=== PATIENT | female | born 1960 | race Caucasian/White ===

== ENCOUNTER → 2017-10-08 | Outpatient (CLI) | payer BC ==
[2017-10-08 10:04] LABS: Basophils % (A) 1 %; CH 29.9; CHCM 31.8; Eosinophils # (A) 0.1 k/uL (0-0.7); Eosinophils % (A) 2 %; HCT 37.8 % (34.0-46.0); HDW 2.26; HGB 11.9 gm/dL (11.4-16.0); Luc % (Auto) 2; Lymphocytes # (A) 1.9 k/uL (1.0-4.8); Lymphocytes % (A) 40 %; MCH 29.6 pg (25.0-35.0); MCHC 31.4 g/dL (31.0-37.0); MCV 94.4 fL (80.0-100.0); Mean Platelet Volume 7.8; Monocytes # (A) 0.3 k/uL (0-1.0); Monocytes % (A) 7 %; Neutrophils # (A) 2.3 k/uL (1.3-7.7); Neutrophils % (A) 48 %; RDW 13.4 % (11.5-15.5); WBC 4.7 k/uL (3.8-10.6); WBC (Perox) 4.64
== END | disposition home or self-care (01) ==
LOC: LABWHC1 09:32
PROVIDERS: ATTEND Obstetrics & Gynecology
DX: Z01.812 Encounter for preprocedural laboratory examination (principal)
CPT/HCPCS: 36415; 84702; 85025

== ENCOUNTER 2018-07-05 10:30 | Observation (INO) | payer BC ==
--- NOTE | 2018-07-05 11:23 | ED ---
General Adult HPI - General Chief complaint: Chest Pain Stated complaint: Chest pain Time Seen by Provider: 07/05/18 10:50 Source: patient, RN notes reviewed Mode of arrival: ambulatory Limitations: no limitations - History of Present Illness Initial comments: Patient is a pleasant 49-year-old male presenting to the emergency Department with complaints of chest discomfort. Symptoms have been occurring for the past couple of days. Patient has discomfort of her lower chest and does become tight. Patient states it does radiate somewhat towards the right breast as well as the back. Patient does have some dyspnea, nausea, and sweating, all have been mild. Discomfort is essentially resolved at this point. Discomfort has been waxing and waning. No history of similar symptoms prior to the past few days. - Related Data Home Medications Medication Instructions Recorded Confirmed DULoxetine HCL [Cymbalta] 60 mg PO BID 07/05/18 07/05/18 Diltiazem Cd [Cardizem Cd] 120 mg PO DAILY 07/05/18 07/05/18 Levothyroxine Sodium [Synthroid] 50 mcg PO Q48H 07/05/18 07/05/18 Metoprolol Tartrate [Lopressor] 50 mg PO BID 07/05/18 07/05/18 Terazosin [Hytrin] 1 mg PO HS 07/05/18 07/05/18 lamoTRIgine [LaMICtal] 100 mg PO BID 07/05/18 07/05/18 rOPINIRole HCL [Requip] 1 mg PO HS 07/05/18 07/05/18 Allergies Allergy/AdvReac Type Severity Reaction Status Date / Time morphine AdvReac Nausea & Verified 07/05/18 11:21 Vomiting Review of Systems ROS Statement: Those systems with pertinent positive or pertinent negative responses have been documented in the HPI. ROS Other: All systems not noted in ROS Statement are negative. Constitutional: Denies: fever Eyes: Denies: eye pain ENT: Denies: ear pain Respiratory: Denies: cough Cardiovascular: Reports: chest pain Endocrine: Denies: fatigue Gastrointestinal: Reports: nausea. Denies: abdominal pain Genitourinary: Denies: dysuria Musculoskeletal: Denies: back pain Skin: Denies: rash Neurological: Denies: weakness Past Medical History Past Medical History: Hypertension Additional Past Medical History / Comment(s): MS History of Any Multi-Drug Resistant Organisms: None Reported Past Surgical History: Appendectomy, Breast Surgery Past Psychological History: Anxiety Smoking Status: Never smoker Past Alcohol Use History: Occasional Past Drug Use History: None Reported General Exam Limitations: no limitations General appearance: alert, in no apparent distress Head exam: Present: atraumatic Eye exam: Present: normal appearance, PERRL ENT exam: Present: normal oropharynx Neck exam: Present: normal inspection Respiratory exam: Present: normal lung sounds bilaterally. Absent: chest wall tenderness Cardiovascular Exam: Present: bradycardia, normal heart sounds Expanded Peripheral pulses: 2+: Radial (R), Radial (L), Posterior Tibialis (R), Posterior Tibialis (L) GI/Abdominal exam: Present: soft. Absent: tenderness Extremities exam: Present: normal inspection. Absent: pedal edema, calf tenderness Neurological exam: Present: alert Psychiatric exam: Present: normal affect, normal mood Skin exam: Present: normal color Course Vital Signs 07/05/18 07/05/18 10:39 13:00 Temperature 97.9 F Pulse Rate 51 L Respiratory 18 Rate Blood Pressure 125/80 186/80 O2 Sat by Pulse 99 98 Oximetry EKG Findings - EKG Comments: EKG Findings:: Sinus bradycardia 47. W[place] 190. QRS 96. QT 44. QTC 428. Normal axis. LVH. No acute ST change. Medical Decision Making - Medical Decision Making Patient reevaluated and resting comfortably in bed. Patient updated on results and plan. Patient and family are both specifically updated regarding chest x- ray results and possible nodule or mass and need for further evaluation regarding this. They're specifically updated that they will need to follow-up with the regular doctor and have repeat x-rays or computed tomography scan. Case was discussed with Dr. hancock, who will admit for Dr. starr - Lab Data Result diagrams: 07/05/18 11:05 07/05/18 11:05 Lab Results 07/05/18 07/05/18 07/05/18 Range/Units 11:05 11:05 11:05 WBC 5.8 (3.8-10.6) k/uL RBC 4.29 (3.80-5.40) m/uL Hgb 13.0 (11.4-16.0) gm/dL Hct 39.8 (34.0-46.0) % MCV 92.7 (80.0-100.0) fL MCH 30.4 (25.0-35.0) pg MCHC 32.8 (31.0-37.0) g/dL RDW 12.3 (11.5-15.5) % Plt Count 252 (150-450) k/uL Neutrophils % 62 % Lymphocytes % 25 % Monocytes % 9 % Eosinophils % 2 % Basophils % 1 % Neutrophils # 3.6 (1.3-7.7) k/uL Lymphocytes # 1.5 (1.0-4.8) k/uL Monocytes # 0.5 (0-1.0) k/uL Eosinophils # 0.1 (0-0.7) k/uL Basophils # 0.0 (0-0.2) k/uL PT (9.0-12.0) sec INR (<1.2) APTT (22.0-30.0) sec D-Dimer (<0.60) mg/L FEU Sodium 139 (137-145) mmol/L Potassium 3.9 (3.5-5.1) mmol/L Chloride 105 (98-107) mmol/L Carbon Dioxide 26 (22-30) mmol/L Anion Gap 8 mmol/L BUN 17 (7-17) mg/dL Creatinine 1.12 H (0.52-1.04) mg/dL Est GFR (CKD-EPI)AfAm 63 (>60 ml/min/1.73 sqM) Est GFR (CKD-EPI)NonAf 55 (>60 ml/min/1.73 sqM) Glucose 96 (74-99) mg/dL Calcium 9.2 (8.4-10.2) mg/dL Magnesium 2.1 (1.6-2.3) mg/dL Total Bilirubin 0.4 (0.2-1.3) mg/dL AST 30 (14-36) U/L ALT 31 (9-52) U/L Alkaline Phosphatase 59 (38-126) U/L Total Creatine Kinase 61 (30-135) U/L CK-MB (CK-2) 0.7 (0.0-2.4) ng/mL CK-MB (CK-2) Rel Index 1.1 Troponin I <0.012 (0.000-0.034) ng/mL Total Protein 7.3 (6.3-8.2) g/dL Albumin 4.0 (3.5-5.0) g/dL 07/05/18 Range/Units 11:05 WBC (3.8-10.6) k/uL RBC (3.80-5.40) m/uL Hgb (11.4-16.0) gm/dL Hct (34.0-46.0) % MCV (80.0-100.0) fL MCH (25.0-35.0) pg MCHC (31.0-37.0) g/dL RDW (11.5-15.5) % Plt Count (150-450) k/uL Neutrophils % % Lymphocytes % % Monocytes % % Eosinophils % % Basophils % % Neutrophils # (1.3-7.7) k/uL Lymphocytes # (1.0-4.8) k/uL Monocytes # (0-1.0) k/uL Eosinophils # (0-0.7) k/uL Basophils # (0-0.2) k/uL PT 9.9 (9.0-12.0) sec INR 1.0 (<1.2) APTT 24.0 (22.0-30.0) sec D-Dimer 0.32 (<0.60) mg/L FEU Sodium (137-145) mmol/L Potassium (3.5-5.1) mmol/L Chloride (98-107) mmol/L Carbon Dioxide (22-30) mmol/L Anion Gap mmol/L BUN (7-17) mg/dL Creatinine (0.52-1.04) mg/dL Est GFR (CKD-EPI)AfAm (>60 ml/min/1.73 sqM) Est GFR (CKD-EPI)NonAf (>60 ml/min/1.73 sqM) Glucose (74-99) mg/dL Calcium (8.4-10.2) mg/dL Magnesium (1.6-2.3) mg/dL Total Bilirubin (0.2-1.3) mg/dL AST (14-36) U/L ALT (9-52) U/L Alkaline Phosphatase (38-126) U/L Total Creatine Kinase (30-135) U/L CK-MB (CK-2) (0.0-2.4) ng/mL CK-MB (CK-2) Rel Index Troponin I (0.000-0.034) ng/mL Total Protein (6.3-8.2) g/dL Albumin (3.5-5.0) g/dL - Radiology Data Radiology results: image reviewed (Chest x-ray shows hyperinflation, possible left upper lobe mass.) Disposition Clinical Impression: Chest pain Disposition: ADMITTED IP TO THIS HOSP Is patient prescribed a controlled substance at d/c from ED?: No Referrals: Kapil Starr MD [Primary Care Provider] - 1-2 days Decision Time: 13:38
[2018-07-05] MEDS ORDERED: ASPIRIN 81 MG PO STA (11:48)
[2018-07-05] MEDS ORDERED: NITROGLYCERIN OINT 1 INCH/GM PACKET TOPICAL STA (11:48)
[2018-07-05 12:04] LABS: Basophils % (A) 1 %; Eosinophils # (A) 0.1 k/uL (0-0.7); Eosinophils % (A) 2 %; HCT 39.8 % (34.0-46.0); Lymphocytes # (A) 1.5 k/uL (1.0-4.8); Lymphocytes % (A) 25 %; MCH 30.4 pg (25.0-35.0); MCHC 32.8 g/dL (31.0-37.0); MCV 92.7 fL (80.0-100.0); Mean Platelet Volume 7.5; Monocytes # (A) 0.5 k/uL (0-1.0); Monocytes % (A) 9 %; Neutrophils # (A) 3.6 k/uL (1.3-7.7); Neutrophils % (A) 62 %; Platelet Count 252 k/uL (150-450); RBC 4.29 m/uL (3.80-5.40); RDW 12.3 % (11.5-15.5); WBC 5.8 k/uL (3.8-10.6)
[2018-07-05 12:12] LABS: Calcium 9.2 mg/dL (8.4-10.2); Magnesium 2.1 mg/dL (1.6-2.3); Potassium 3.9 mmol/L (3.5-5.1); Total Bilirubin 0.4 mg/dL (0.2-1.3); Total Protein 7.3 g/dL (6.3-8.2)
--- NOTE | 2018-07-05 12:16 | XR ---
EXAMINATION TYPE: XR chest 2V DATE OF EXAM: 07/05/2018 HISTORY: Chest Pain. REFERENCE: NONE. FINDINGS: Lung volumes are prominent. There is a questionable left upper lobe pulmonary mass. The susanna gs are otherwise clear. There is blunting of the left CP angle. I could not exclude a small left effu jaleel. The heart is not enlarged. IMPRESSION: 1. COPD. 2. LEFT UPPER LOBE PULMONARY MASS. 3. I COULD NOT EXCLUDE A SMALL, LEFT EFFUSION.
[2018-07-05 12:17] LABS: D-Dimer 0.32 mg/L FEU (<0.60); Prothrombin Time 9.9 sec (9.0-12.0)
[2018-07-05 12:30] LABS: Creatine Kinase 61 U/L (30-135)
[2018-07-05 12:44] LABS: Creatine Kinase MB 0.7 ng/mL (0.0-2.4); Troponin I <0.012 ng/mL (0.000-0.034)
[2018-07-05] MEDS ORDERED: NITROGLYCERIN SL TABS 0.4 MG TAB SUBLINGUAL PRN (13:38)
[2018-07-05 16:47] VITALS: BMI 20.2
[2018-07-05 17:08] LABS: Creatine Kinase 54 U/L (30-135)
[2018-07-05 17:21] LABS: Creatine Kinase MB 0.6 ng/mL (0.0-2.4); Troponin I <0.012 ng/mL (0.000-0.034)
[2018-07-05] MEDS: NITROGLYCERIN OINT 1 INCH/GM PACKET TOPICAL SCH ×2 (20:11→23:42)
[2018-07-05] MEDS: DULoxetine HCL 60 MG CAPSULE.DR PO SCH (20:46)
[2018-07-05] MEDS: lamoTRIgine 100 MG TAB PO SCH (20:47)
[2018-07-05] MEDS ORDERED: DOXAZOSIN 1 MG TAB PO SCH (21:00)
[2018-07-05] MEDS ORDERED: RX INFO: IV CONTRAST WAS GIVEN 1 EACH MISC MISCELLANE PRN (22:01)
[2018-07-05] MEDS ORDERED: CALCIUM CARBONATE 500 MG CHEWABLE PO PRN (22:14)
[2018-07-05] MEDS ORDERED: MAGNESIUM HYDROXIDE 2,400 MG/10 ML CUP PO PRN (22:14)
[2018-07-05] MEDS ORDERED: MELATONIN 3 MG TABLET PO PRN (22:14)
[2018-07-05] MEDS ORDERED: NALOXONE 0.4 MG/ML 1 ML VIAL IV PRN (22:14)
[2018-07-05] MEDS ORDERED: ONDANSETRON 4 MG/2 ML VIAL IVP PRN (22:14)
[2018-07-05] MEDS ORDERED: LACTULOSE 20 GM/30 ML CUP PO PRN (22:14)
--- NOTE | 2018-07-05 22:51 | HP ---
HISTORY AND PHYSICAL DATE OF SERVICE: 07/05/2018 PRESENTING COMPLAINT: Chest pain. HISTORY OF PRESENTING COMPLAINT: A very pleasant 58-year-old patient of Dr. Starr. Chronic stable medical conditions include hypertension, multiple sclerosis, GERD. The patient's MS is under control, not taking any medications. The patient is due to follow up with Dr. Sinha. The patient does get episodes of reflux and belching and abdominal bloating and constipation. Two days ago, she had gone to eat [place] food with her and that day in the evening she developed pain below the ribcage and she did burp and did fart and that actually made her feel better. The pain never really went away. It was present on both sides, what she describes to be below her breasts, both in the upper abdomen and the lower chest. There was no radiation to the neck or arm. No dizziness. No lightheadedness. No precordial pain. Because of concern of this being a cardiac event, she decided to come in. Like stated, the patient is often troubled by bloating and constipation and reflux symptoms. REVIEW OF SYSTEMS: CONSTITUTIONAL: None. HEENT: None. CARDIOVASCULAR: As above. GASTROINTESTINAL: As above. GENITOURINARY: None. MUSCULOSKELETAL: None. DERMATOLOGICAL: None. HEMATOLOGIC: None. LYMPHATICS: None. PSYCHIATRY: None. NEUROLOGICAL: None. PAST MEDICAL HISTORY: GERD, hypertension, multiple sclerosis. PAST SURGICAL HISTORY: Appendectomy, breast surgery. PSYCH HISTORY: Anxiety. SOCIAL HISTORY: Patient smoked for maybe 10 years a few cigarettes a day, stopped many years ago. Alcohol occasionally. Homemaker. . FAMILY HISTORY: The patient is adopted. HOME MEDICATIONS: 1. Requip 1 mg q.h.s. 2. Lamictal 100 mg b.i.d. 3. Terazosin 1 mg q.h.s. 4. Lopressor 50 mg b.i.d. 5. Synthroid 50 mcg every 48 hours. 6. Cardizem CD 120 mg a day. 7. Cymbalta 60 mg p.o. b.i.d. ALLERGY: MORPHINE. EXAMINATION: Temp 97.4, pulse 54, respirations 15, blood pressure 150/88, pulse 100% on room air. GENERAL APPEARANCE: Thin built, BMI 20.2, sitting up, not in distress. EYES: Pupils equal. Conjunctivae normal. HEENT: External nose and ears normal. Oral cavity normal. NECK: JVD not raised. Mass not palpable. RESPIRATORY: Effort normal. LUNGS: Fair air entry. CARDIOVASCULAR: First and second sounds normal. No edema. ABDOMEN: Epigastric tenderness. No guarding or rigidity. Liver and spleen not palpable. LYMPHATIC: No lymph node palpable. PSYCHIATRY: Alert and oriented x3. Mood and affect slightly anxious-appearing. NEUROLOGICAL: Pupils equal. Cranial nerves grossly intact. Power and sensation grossly intact. INVESTIGATIONS: White count 5.8, hemoglobin 13.0. Potassium 3.9, BUN 17, creatinine 1.12. Troponin x2 negative. EKG tracing interpreted by me shows sinus bradycardia. Chest x-ray film interpreted by me shows lung richardson to be clear. There is a questionable left upper lobe pulmonary mass. ASSESSMENT: 1. This is a patient who has had a longstanding history of reflux, bloating, constipation, presented with worsening symptoms with some help with burping and flatus. Most likely this is a combination of gastroesophageal reflux disease, esophageal spasm and maybe gastritis. I doubt cardiac cause, but need to rule out the same. 2. Questionable left upper lung mass on chest x-ray. Will need a CT scan. 3. Severe reflux. 4. Essential hypertension. 5. Multiple sclerosis in remission. 6. Hypothyroid. PLAN: Home medications are resumed. At this point, we will put the patient on a PPI, Tums and simethicone for gastric bloating. Cardiology was consulted. Will order a CT scan of the chest with contrast. Will also check the patient's TSH. Care was discussed with the patient. Questions were answered. MMODL / IJN: [id number] /
[2018-07-05] MEDS: PANTOPRAZOLE 40 MG TABLET PO SCH (23:32)
[2018-07-05] MEDS: CALCIUM CARBONATE LIQUID 500 MG/5 ML CUP PO SCH (23:32)
[2018-07-05 23:34] LABS: Creatine Kinase 52 U/L (30-135)
[2018-07-05] MEDS: ENOXAPARIN 40 MG/0.4 ML SYRINGE SQ SCH (23:38)
[2018-07-05] MEDS: SIMETHICONE 80 MG CHEWABLE PO SCH (23:38)
[2018-07-05] MEDS: METOPROLOL TARTRATE 50 MG TAB PO SCH (23:38)
[2018-07-05 23:49] LABS: Creatine Kinase MB 0.6 ng/mL (0.0-2.4); Troponin I <0.012 ng/mL (0.000-0.034)
[2018-07-06] MEDS: PANTOPRAZOLE 40 MG TABLET PO SCH ×2 (06:32→17:42)
[2018-07-06] MEDS: CALCIUM CARBONATE LIQUID 500 MG/5 ML CUP PO SCH ×3 (06:32→17:36)
[2018-07-06] MEDS: NITROGLYCERIN OINT 1 INCH/GM PACKET TOPICAL SCH (06:34)
--- NOTE | 2018-07-06 07:56 | CT ---
EXAMINATION TYPE: CT chest w con DATE OF EXAM: 07/06/2018 COMPARISON: Chest x-ray dated 07/05/2018. HISTORY: abn CXR CT DLP: 368 mGycm Automated exposure control for dose reduction was used. CONTRAST: CT scan of the chest is performed with IV Contrast, patient injected with 100 mL of Isovue 300. FINDINGS: The lungs are clear. No parenchymal mass is identified. There are bilateral breast implants in place. There is no significant axillary, internal mammary, mediastinal or hilar adenopathy. There is no pleu ral or pericardial fluid. The heart is not enlarged. Visualized portions of the upper abdomen are unremarkable. No bony lesion is seen. IMPRESSION: 1. NO ACUTE INTRATHORACIC ABNORMALITY. 2. POSTSURGICAL CHANGE.
[2018-07-06] MEDS ORDERED: DILTIAZEM CD 120 MG CAP.ER.24H PO SCH (09:00)
[2018-07-06] MEDS ORDERED: ASPIRIN 325 MG TAB PO SCH (09:00)
--- NOTE | 2018-07-06 13:49 | P.CRDCN ---
History of Present Illness History of present illness: This is Dr. Medley dictating a consult on this patient The patient was interviewed and examined by me IMPRESSION / ASSESSMENT: Fluctuating blood pressures, history of hypertension Apparently was on lisinopril and was told that she had a kidney problem. Upper abdominal bandlike discomfort/lower chest but appears to be upper abdominal. One episode of diarrhea. Usually she is very constipated Dyslipidemia Daily wine consumption no smoking History of multiple sclerosis Recently moved here from [place] Normal ECG normal cardiac enzymes Complains of severe constipation, has been on Cardizem No abnormalities on chest CT PLAN: Stop metoprolol, stop Cardizem, stop terazosin start losartan 50 mg by mouth daily. Watch renal function did GI workup for severe constipation and abdominal pain Unclear why her creatinine is 1.12 Renal system evaluation GI evaluation Stop Cardizem, may worsen obstipation HPI Patient presented with a bandlike discomfort in the lower chest upper abdomen area. Patient points to the upper abdomen lower chest area did normally she is extremely constipated and wants to see a welcome desk agent but she had an episode of diarrhea as well as nausea. No loss of consciousness no palpitations. She did feel that this discomfort went up into her chest into her neck ROS: No fever chills or rigors, no cough, phlegm or expectoration, + nausea, no vomiting 1 episode of diarrhea, no hematuria, dysuria, no musculoskeletal complaints, no strokes or seizures, no skin lesions. EXAMINATION 145/73, 117/58 Pulse rate in the 60s Afebrile Resting comfortably in bed no respiratory distress no orthopnea Normal heart sounds normal S1 normal S2 Normal breath sounds no adventitious sounds Abdomen is soft nontender Extremities are warm no edema REVIEW OF LABS, ECG Normal hemoglobin and normal white count creatinine 1.12 GFR 55 LDL 139, total cholesterol 234, triglycerides 158, HDL 63 Normal TSH 3 normal cardiac enzymes Sinus bradycardia 47 beats a minute on metoprolol and Cardizem Past Medical History Past Medical History: Hypertension Additional Past Medical History / Comment(s): MS History of Any Multi-Drug Resistant Organisms: None Reported Past Surgical History: Appendectomy, Breast Surgery Smoking Status: Former smoker - Past Family History Father Family Medical History: Coronary Artery Disease (CAD) Medications and Allergies Home Medications Medication Instructions Recorded Confirmed Type DULoxetine HCL [Cymbalta] 60 mg PO BID 07/05/18 07/05/18 History Diltiazem Cd [Cardizem Cd] 120 mg PO DAILY 07/05/18 07/05/18 History Levothyroxine Sodium [Synthroid] 50 mcg PO Q48H 07/05/18 07/05/18 History Metoprolol Tartrate [Lopressor] 50 mg PO BID 07/05/18 07/05/18 History Terazosin [Hytrin] 1 mg PO HS 07/05/18 07/05/18 History lamoTRIgine [LaMICtal] 100 mg PO BID 07/05/18 07/05/18 History rOPINIRole HCL [Requip] 1 mg PO HS 07/05/18 07/05/18 History Allergies Allergy/AdvReac Type Severity Reaction Status Date / Time morphine AdvReac Nausea & Verified 07/05/18 11:21 Vomiting Physical Exam Vitals: Vital Signs Temp Pulse Pulse Pulse Resp BP BP 07/06/18 04:00 97.1 F L 61 16 117/58 07/06/18 00:00 63 16 145/73 07/05/18 20:00 97.0 F L 58 L 16 144/84 07/05/18 16:24 54 L 16 151/84 07/05/18 16:19 07/05/18 16:00 97.4 F L 54 L 15 150/88 07/05/18 15:00 56 L 20 160/84 07/05/18 14:00 55 L 18 168/75 Pulse Ox 07/06/18 04:00 99 07/06/18 00:00 98 07/05/18 20:00 97 07/05/18 16:24 99 07/05/18 16:19 99 07/05/18 16:00 100 07/05/18 15:00 98 07/05/18 14:00 99 Intake and Output 07/05/18 07/06/18 07/06/18 22:59 06:59 14:59 Intake Total 1190 Balance 1190 Intake: IV 10 Invasive Line 1 10 Oral 1180 Other: Voiding Method Toilet Toilet # Voids 2 1 Weight 53.5 kg 54.3 kg Results 07/05/18 11:05 07/05/18 11:05 Cardiac Enzymes 07/05/18 07/05/18 Range/Units 16:37 23:03 CK-MB (CK-2) 0.6 0.6 (0.0-2.4) ng/mL Troponin I <0.012 <0.012 (0.000-0.034) ng/mL Lipids 07/05/18 Range/Units 11:05 Triglycerides 158 H (<150) mg/dL Cholesterol 234 H (<200) mg/dL HDL Cholesterol 63 H (40-60) mg/dL Current Medications Generic Name Dose Route Start Last Admin Trade Name Freq PRN Reason Stop Dose Admin Acetaminophen 650 mg 07/05/18 22:14 Tylenol Tab PO Q6HR PRN Mild Pain or Fever > 100.5 Aspirin 81 mg 07/06/18 11:45 Aspirin PO DAILY [facility]U Calcium Carbonate/Glycine 500 mg 07/05/18 21:50 07/06/18 06:32 Tums Liquid PO 500 mg TID-W/MEALS BINU Administration Calcium Carbonate/Glycine 1,000 mg 07/05/18 22:14 Tums PO Q4HR PRN Dyspepsia Duloxetine HCl 60 mg 07/05/18 21:00 07/05/18 20:46 Cymbalta PO 60 mg BID [facility] Administration Enoxaparin Sodium 40 mg 07/05/18 22:00 07/05/18 23:38 Lovenox SQ 40 mg HS BINU Administration Lactulose 20 gm 07/05/18 22:14 Cephulac PO DAILY PRN Constipation Lamotrigine 100 mg 07/05/18 21:00 07/05/18 20:47 Lamictal PO 100 mg BID [facility]U Administration Levothyroxine Sodium 50 mcg 07/07/18 06:30 Synthroid PO Q48H BINU Lorazepam 0.5 mg 07/05/18 22:14 Ativan PO Q6HR PRN Anxiety Losartan Potassium 50 mg 07/06/18 11:45 Cozaar PO DAILY [facility] Magnesium Hydroxide 2,400 mg 07/05/18 22:14 Milk Of Magnesia PO DAILY PRN Constipation Melatonin 3 mg 07/05/18 22:14 Melatonin PO HS PRN Insomnia Miscellaneous Information 1 each 07/05/18 22:01 Rx Info: Iv Contrast Was Given MISCELLANE 07/07/18 22:01 DAILY PRN Per Protocol Naloxone HCl 0.2 mg 07/05/18 22:14 Narcan IV Q2M PRN Opioid Reversal Nitroglycerin 0.4 mg 07/05/18 13:38 Nitrostat SUBLINGUAL Q5M PRN Chest Pain Ondansetron HCl 4 mg 07/05/18 22:14 Zofran IVP Q8HR PRN Nausea And Vomiting Pantoprazole Sodium 40 mg 07/05/18 22:00 07/06/18 06:32 Protonix PO 40 mg AC-BID BINU Administration Ropinirole HCl 1 mg 07/05/18 21:00 07/05/18 20:47 Requip PO 1 mg HS BINU Administration Simethicone 80 mg 07/05/18 22:00 07/05/18 23:38 Mylicon Chew PO 80 mg QID BINU Administration Sodium Chloride 10 ml 07/05/18 21:00 07/05/18 20:47 Saline Flush IV 10 ml BID BINU Administration Intake and Output 07/05/18 07/06/18 07/06/18 22:59 06:59 14:59 Intake Total 1190 Balance 1190 Intake: IV 10 Invasive Line 1 10 Oral 1180 Other: Voiding Method Toilet Toilet # Voids 2 1 Weight 53.5 kg 54.3 kg 07/05/18 11:05 07/05/18 11:05
[2018-07-06] MEDS: LOSARTAN 50 MG TAB PO SCH (13:59)
[2018-07-06] MEDS: ASPIRIN 81 MG PO SCH (13:59)
[2018-07-06] MEDS: SIMETHICONE 80 MG CHEWABLE PO SCH ×4 (14:00→23:10)
[2018-07-06] MEDS: DULoxetine HCL 60 MG CAPSULE.DR PO SCH ×2 (14:00→20:01)
[2018-07-06] MEDS: lamoTRIgine 100 MG TAB PO SCH ×2 (14:01→20:01)
--- NOTE | 2018-07-06 18:35 | PN ---
PROGRESS NOTE DATE OF SERVICE: 07/06/18. PRESENTING COMPLAINT: Abdominal pain. INTERVAL HISTORY: This is a patient who presented with a flare-up of GERD, bloating, esophageal spasms, was put on a cocktail of PPIs and TUMs, some Simethicone to which she is feeling better. The patient is seen by Dr. Medley from Cardiology. Blood pressure medications were adjusted. REVIEW OF SYSTEMS: Done for constitutional, cardiovascular, GI, pulmonary; relevant findings as above. CURRENT MEDICATIONS: Reviewed that includes Cozaar, patient's Hytrin, Lopressor, Cardizem has been discontinued. The latter because of constipation. PHYSICAL EXAMINATION: Temperature 97.1, pulse 57, respiratory 19, blood pressure 125/66, pulse ox 100% on room air. GENERAL APPEARANCE: Sitting up, comfortable. EYES: Pupils equal. Conjunctivae normal. HEENT: External appearance of nose and ears normal. Oral cavity normal. NECK: JVD not raised. Mass not palpable. RESPIRATORY: Effort normal. Lungs are clear. CARDIOVASCULAR: 1st and 2nd sounds, no edema. ABDOMEN: Mild epigastric tenderness. No guarding or rigidity. Liver and spleen not palpable. PSYCHIATRY: Alert and oriented x3. Mood and affect normal. INVESTIGATIONS: Troponin x3 negative. LDL 139. TSH 1.7. CT scan of the chest. No acute intrathoracic abnormalities. ASSESSMENT: 1. Acute severe gastroesophageal reflux disease, possibly causing esophageal spasm, doing clinically better, probably associated gastritis. 2. CT scan of the chest negative for lung mass. 3. Severe gastroesophageal reflux disease. 4. Essential hypertension. Medications adjusted. 5. Multiple sclerosis in remission. 6. Hypothyroid with TSH normal. 7. Chronic constipation. PLAN: We will see how the patient's blood pressure does overnight. We will add Metamucil. Care was discussed with the patient. Hopefully can discharge the patient tomorrow. MMODL / IJN: [id number] /
[2018-07-06] MEDS: PSYLLIUM HUSK 100% 6 GM PACKET PO SCH (20:01)
[2018-07-06] MEDS: ENOXAPARIN 40 MG/0.4 ML SYRINGE SQ SCH (20:01)
[2018-07-06] MEDS: METOPROLOL TARTRATE 50 MG TAB PO SCH (20:09)
[2018-07-07] MEDS: PANTOPRAZOLE 40 MG TABLET PO SCH ×2 (06:26→17:49)
[2018-07-07] MEDS: CALCIUM CARBONATE LIQUID 500 MG/5 ML CUP PO SCH ×3 (06:27→17:48)
[2018-07-07] MEDS: LEVOTHYROXINE 50 MCG TAB PO SCH (06:44)
[2018-07-07 06:49] LABS: Calcium 9.5 mg/dL (8.4-10.2); Potassium 4.3 mmol/L (3.5-5.1)
[2018-07-07] MEDS: DULoxetine HCL 60 MG CAPSULE.DR PO SCH ×2 (09:14→20:21)
[2018-07-07] MEDS: ASPIRIN 81 MG PO SCH (09:14)
[2018-07-07] MEDS: SIMETHICONE 80 MG CHEWABLE PO SCH ×4 (09:15→20:21)
[2018-07-07] MEDS: lamoTRIgine 100 MG TAB PO SCH ×2 (09:15→20:20)
[2018-07-07] MEDS: LOSARTAN 50 MG TAB PO SCH (09:15)
[2018-07-07] MEDS: PSYLLIUM HUSK 100% 6 GM PACKET PO SCH (09:18)
[2018-07-07] MEDS: amLODIPine 5 MG TAB PO SCH (15:05)
[2018-07-07] MEDS: ACETAMINOPHEN TAB 325 MG TAB PO PRN ×2 (15:09→20:19)
--- NOTE | 2018-07-07 15:18 | P.PN ---
Subjective Progress Note Date: 07/07/18 This is a 58-year-old female who presented to the hospital with symptoms of chest discomfort, mostly epigastric in nature. She also had some lower abdominal discomfort as well. Cardiology was seeing the patient because of this atypical chest pain as well as because of accelerated hypertension. She was seen in consultation by Dr. Medley and medication adjustments were made yesterday. She was started on an angiotensin nafisa, today he continues to be significantly hypertensive. Blood pressure this morning 190/90 with a heart rate in the 70s, temperature 97.5. Sodium 142, potassium 4.3, BUN 13, creatinine 1.0. Cholesterol 234, LDL 139, HDL 63, triglycerides of 158. We'll start the patient on 80 mg of Lipitor, discontinue the losartan and at Norvasc 5 mg daily to her medication regime. We will also obtain an echocardiogram with Doppler study. Patient's main complaint today is that she still feels quite constipated. Objective - Vital Signs Vital signs: Vital Signs Temp 97.5 F L 07/07/18 09:00 Pulse 70 07/07/18 14:09 Resp 16 07/07/18 11:10 BP 193/95 07/07/18 14:09 Pulse Ox 99 07/07/18 11:10 Intake & Output 07/06/18 07/07/18 07/07/18 18:59 06:59 18:59 Intake Total 500 720 342 Output Total 1000 Balance 500 720 -658 Weight 53.8 kg Intake: Oral 500 720 342 Output: Urine 1000 Other: Voiding Method Toilet Toilet Toilet # Voids 1 2 - Exam PHYSICAL EXAMINATION: GENERAL: 58-year-old female in no acute distress at the time of my examination HEENT: Head is atraumatic, normocephalic. Pupils equal, round. Sclera anicteric. Conjunctiva are clear. Mucous membranes of the mouth are moist. Neck is supple. There is no elevated jugular venous pressure.] bruit is heard. HEART EXAMINATION: Heart S1, S2 normal. No murmur or gallop heard. CHEST EXAMINATION: Lungs are clear to auscultation and precussion. No chest wall tenderness is noted on palpation or with deep breathing. ABDOMEN: Soft, nontender. Bowel sounds are heard. No organomegaly noted. EXTREMITIES: 2+ peripheral pulses with no evidence of peripheral edema and no calf tenderness noted. NEUROLOGIC patient is awake, alert and oriented ?-3. . - Labs CBC & Chem 7: 07/05/18 11:05 07/07/18 06:04 Labs: Abnormal Lab Results - Last 24 Hours (Table) 07/07/18 Range/Units 06:04 Creatinine 1.09 H (0.52-1.04) mg/dL Assessment and Plan Plan: Assessment and plan #1 chest pain atypical for acute coronary syndrome, epigastric in nature. Troponins negative. EKG shows normal sinus rhythm with no changes. #2 accelerated hypertension with fluctuation in her blood pressures. Those are and add Norvasc today. #3 abdominal discomfort with evidence of constipation #4 hyperlipidemia #5 daily wine consumption #6 multiple sclerosis Plan We will obtain an echocardiogram with Doppler study. Add Norvasc 5 mg to her medication regime. Start the patient on Lipitor. DNP note has been reviewed, I agree with a documented findings and plan of care. Patient was seen and examined.
[2018-07-07] MEDS ORDERED: amLODIPine 5 MG TAB PO STA (17:18)
[2018-07-07] MEDS: LORazepam 0.5 MG TAB PO PRN (20:20)
[2018-07-07] MEDS: ENOXAPARIN 40 MG/0.4 ML SYRINGE SQ SCH (20:20)
[2018-07-07] MEDS ORDERED: ATORVASTATIN 80 MG TAB PO SCH (21:00)
--- NOTE | 2018-07-07 23:15 | PN ---
PROGRESS NOTE DATE OF SERVICE: 07/07/2018 PRESENTING COMPLAINT: Abdominal pain. INTERVAL HISTORY: This patient presented with flare of GERD and esophageal spasm and those symptoms are greatly improved. The blood pressure medications were adjusted by Cardiology, Dr. Medley. This morning, the blood pressure was running high. Further adjustments were made to the blood pressure medications. Medication also added for constipation. REVIEW OF SYSTEMS: Done for constitutional, cardiovascular, GI, pulmonary and findings as above. CURRENT MEDICATIONS: Reviewed and include: 1. Norvasc 5 mg a day. 2. Lipitor 80 mg at bedtime. 3. Synthroid. 4. Cozaar 50 mg a day. PHYSICAL EXAMINATION: Temperature 98, pulse 72, respiratory rate 16, blood pressure 184/102, pulse ox 99% on room air. GENERAL APPEARANCE: Sitting up, comfortable. EYES: Pupils are equal. Conjunctivae normal. HEENT: External nose is normal. Oral cavity normal. NECK: JVD not raised. Mass not palpable. RESPIRATORY: Effort normal. LUNGS: Clear. CARDIOVASCULAR: First and second sounds normal. No edema. ABDOMEN: Minimal epigastric tenderness. Soft, nontender. Liver and spleen not palpable. PSYCHIATRY: Alert and oriented x3. Mood and affect normal. INVESTIGATIONS: Potassium 4.3, creatinine 1.09. ASSESSMENT: 1. Acute severe gastroesophageal reflux disease, possible causing cervical spasms, now clinically improved. Possibly associated gastritis. 2. Severe gastroesophageal reflux disease. 3. Essential hypertension, uncontrolled. 4. Multiple sclerosis in remission. 5. Hypothyroid. 6. Chronic long-standing constipation. PLAN: We will increase the patient's Metamucil to twice a day and also add lactulose. Blood pressure medication is being adjusted by Cardiology. Care was discussed the patient. MMODL / IJN: [id number] /
[2018-07-08] MEDS: LEVOTHYROXINE 50 MCG TAB PO SCH (06:24)
[2018-07-08] MEDS: CALCIUM CARBONATE LIQUID 500 MG/5 ML CUP PO SCH ×2 (06:24→12:38)
[2018-07-08] MEDS: LACTULOSE 20 GM/30 ML CUP PO SCH ×2 (06:24→08:09)
[2018-07-08] MEDS: PANTOPRAZOLE 40 MG TABLET PO SCH (06:25)
[2018-07-08] MEDS: PSYLLIUM HUSK 100% 6 GM PACKET PO SCH ×2 (06:30→08:09)
[2018-07-08 06:52] LABS: Calcium 9.6 mg/dL (8.4-10.2); Potassium 4.6 mmol/L (3.5-5.1)
[2018-07-08] MEDS: SIMETHICONE 80 MG CHEWABLE PO SCH ×2 (08:06→12:38)
[2018-07-08] MEDS: amLODIPine 5 MG TAB PO SCH (08:06)
[2018-07-08] MEDS: DULoxetine HCL 60 MG CAPSULE.DR PO SCH (08:06)
[2018-07-08] MEDS: ASPIRIN 81 MG PO SCH (08:06)
[2018-07-08] MEDS: LOSARTAN 50 MG TAB PO SCH (08:06)
[2018-07-08] MEDS: lamoTRIgine 100 MG TAB PO SCH (08:07)
[2018-07-08 08:25] VITALS: RESP 16
--- NOTE | 2018-07-08 10:31 | ECHOF ---
Referral Reason:htn MEASUREMENTS -------- HEIGHT: 162.6 cm WEIGHT: 53.5 kg BP: 160/92 IVSd: 1.2 cm (0.6 - 1.1) LVIDd: 4.1 cm (3.9 - 5.3) LVPWd: 1.1 cm (0.6 - 1.1) IVSs: 1.3 cm LVIDs: 2.2 cm LVPWs: 1.3 cm LA Diam: 2.7 cm (2.7 - 3.8) LAESV Index (A-L): 25.89 ml/m Ao Diam: 2.5 cm (2.0 - 3.7) AV Cusp: 1.7 cm (1.5 - 2.6) LA Diam: 2.6 cm (2.7 - 3.8) EPSS: 0.7 cm MV E Thai: 0.74 m/s MV DecT: 236 ms MV A Thai: 1.02 m/s MV E/A Ratio: 0.73 RAP: 5.00 mmHg RVSP: 10.97 mmHg MV EF SLOPE: 86.97 mm/s (70 - 150) MV EXCURSION: 1.24 cm (> 18.000) FINDINGS -------- Sinus rhythm. This was a technically adequate study. Pt. Has Breast inplants The left ventricular size is normal. There is mild concentric left ventricular hypertrophy. Overa ll left ventricular systolic function is normal with, an EF between 55 - 60 %. The right ventricle is normal in size and function. Normal LA size by volume 22+/-6 ml/m2. The right atrium is normal in size. Aortic valve is trileaflet and is mildly thickened. The mitral valve leaflets are mildly thickened. Mild mitral regurgitation is present. Trace tricuspid regurgitation present. Right ventricular systolic pressure is normal at < 35 mmHg. The right ventricular systolic pressure, as measured by Doppler, is 10.97mmHg. The pulmonic valve was not well visualized. There is no pulmonic regurgitation present. The aortic root size is normal. Normal inferior vena cava with normal inspiratory collapse consistent with estimated right atrial pre ssure of 5 mmHg. There is no pericardial effusion. CONCLUSIONS -------- 1. Sinus rhythm. 2. This was a technically adequate study. 3. Pt. Has Breast inplants 4. The left ventricular size is normal. 5. There is mild concentric left ventricular hypertrophy. 6. Overall left ventricular systolic function is normal with, an EF between 55 - 60 %. 7. Normal LA size by volume 22+/-6 ml/m2. 8. Aortic valve is trileaflet and is mildly thickened. 9. The mitral valve leaflets are mildly thickened. 10. Mild mitral regurgitation is present. 11. Trace tricuspid regurgitation present. 12. Right ventricular systolic pressure is normal at < 35 mmHg. 13. The pulmonic valve was not well visualized. 14. There is no pulmonic regurgitation present. 15. The aortic root size is normal. 16. There is no pericardial effusion. BUSINESS [employer] SALES ASSISTANT: Tay Enriquez RDCS
[2018-07-08] MEDS: LORazepam 0.5 MG TAB PO PRN (12:41)
--- NOTE | 2018-07-08 14:05 | P.PN ---
Subjective Progress Note Date: 07/08/18 This is a 58-year-old female who presented to the hospital with symptoms of chest discomfort, mostly epigastric in nature. She also had some lower abdominal discomfort as well. Cardiology was seeing the patient because of this atypical chest pain as well as because of accelerated hypertension. She was seen in consultation by Dr. Medley and medication adjustments were made yesterday. She was started on an angiotensin nafisa, today he continues to be significantly hypertensive. Blood pressure this morning 190/90 with a heart rate in the 70s, temperature 97.5. Sodium 142, potassium 4.3, BUN 13, creatinine 1.0. Cholesterol 234, LDL 139, HDL 63, triglycerides of 158. We'll start the patient on 80 mg of Lipitor, discontinue the losartan and at Norvasc 5 mg daily to her medication regime. We will also obtain an echocardiogram with Doppler study. Patient's main complaint today is that she still feels quite constipated. 07/08/2018 Patient seen and examined this morning, blood pressure under much better control , 132/70 today, heart rate in the 90s. 100% on room air. Echocardiogram with Doppler study performed which revealed a normal left ventricular systolic function. Objective - Vital Signs Vital signs: Vital Signs Temp 97.8 F 07/08/18 08:00 Pulse 102 H 07/08/18 08:00 Resp 16 07/08/18 08:00 BP 132/71 07/08/18 08:00 Pulse Ox 100 07/08/18 08:00 Intake & Output 07/07/18 07/08/18 07/08/18 18:59 06:59 18:59 Intake Total 342 600 Output Total 1000 1000 Balance -658 -400 Weight 55.8 kg Intake: Oral 342 600 Output: Urine 1000 1000 Other: Voiding Method Toilet Toilet # Voids 1 - Exam PHYSICAL EXAMINATION: GENERAL: 58-year-old female in no acute distress at the time of my examination HEENT: Head is atraumatic, normocephalic. Pupils equal, round. Sclera anicteric. Conjunctiva are clear. Mucous membranes of the mouth are moist. Neck is supple. There is no elevated jugular venous pressure.] bruit is heard. HEART EXAMINATION: Heart S1, S2 normal. No murmur or gallop heard. CHEST EXAMINATION: Lungs are clear to auscultation and precussion. No chest wall tenderness is noted on palpation or with deep breathing. ABDOMEN: Soft, nontender. Bowel sounds are heard. No organomegaly noted. EXTREMITIES: 2+ peripheral pulses with no evidence of peripheral edema and no calf tenderness noted. NEUROLOGIC patient is awake, alert and oriented ?-3. . - Labs CBC & Chem 7: 07/05/18 11:05 07/08/18 05:53 Assessment and Plan Plan: Assessment and plan #1 chest pain atypical for acute coronary syndrome, epigastric in nature. Troponins negative. EKG shows normal sinus rhythm with no changes. #2 accelerated hypertension with fluctuation in her blood pressures. #4 hyperlipidemia #5 daily wine consumption #6 multiple sclerosis Plan Echocardiogram with Doppler study revealed normal left ventricular systolic function. Blood pressure today is stable. From cardiology's perspective, she may be able to be discharged home today. We'll make her a follow-up appointment to see Dr. Price in the office post discharge. We will follow her now on an as-needed basis only, please to hesitate to call with any questions. DNP note has been reviewed, I agree with a documented findings and plan of care. Patient was seen and examined.
[2018-07-08 15:13] VITALS: BP 166/42; PULSE 105; TEMP 98.1
--- NOTE | 2018-07-09 00:20 | DS ---
DISCHARGE SUMMARY DATE OF ADMISSION: 07/05/2018 DATE OF DISCHARGE: 07/08/2018. FINAL DIAGNOSES: 1. Acute severe GERD and esophageal spasm, possible associated gastritis. 2. Severe gastroesophageal reflux disease. 3. Essential hypertension, uncontrolled. 4. Multiple sclerosis in remission. 5. Hypothyroid. 6. Chronic long-standing constipation, idiopathic. HOSPITAL COURSE: This patient presented with severe worsening abdominal and some chest pain, all felt to be related to her severe GERD and esophageal spasm. The patient is given PPI, Tums, simethicone to which she responded well. Blood pressure medications adjusted by Dr. Medley. Blood pressure is better controlled by the time of discharge. A 2D echocardiogram was unremarkable. Chest CT, no intrathoracic abnormalities. EXAMINATION: Afebrile, blood pressure 166/42, pulse 98% on room air. LUNGS: Clear. CARDIOVASCULAR: First and second sounds normal. ABDOMEN: Soft, nontender. CONSULTATION: Dr. Medley from Cardiology. DISCHARGE MEDICATIONS: 1. Cymbalta 60 mg p.o. b.i.d. 2. Synthroid 50 mcg a day. 3. Lamictal 100 mg p.o. b.i.d. 4. Requip 1 mg p.o. q.h.s. 5. Lipitor 20 mg p.o. daily. 6. Tums 1000 mg p.o. q.4 p.r.n. 7. Cozaar 50 mg p.o. daily. 8. Melatonin 3 mg p.o. q.h.s. p.r.n. 9. Prilosec 20 mg p.o. b.i.d. 10.Metamucil 6 grams p.o. b.i.d. 11.Simethicone 40 mg p.o. t.i.d. 12.Norvasc 5 mg p.o. daily. FOLLOWUP: Follow up with Dr. Medley in 2 weeks. Follow up with her family doctor in 1 week. MMODL / IJN: [id number] /
== END 2018-07-08 16:30 | disposition home or self-care (01) ==
LOC: EC 10:30 → 6SEL 13:38
PROVIDERS: ADMIT Hospitalist; ATTEND Hospitalist
DX: K21.9 Gastro-esophageal reflux disease without esophagitis (principal); K22.4 Dyskinesia of esophagus; K59.04 Chronic idiopathic constipation; R07.89 Other chest pain; I10 Essential (primary) hypertension; G35 Multiple sclerosis; F41.9 Anxiety disorder, unspecified; E03.9 Hypothyroidism, unspecified; E78.5 Hyperlipidemia, unspecified; R00.1 Bradycardia, unspecified; Z72.89 Other problems related to lifestyle; Z98.82 Breast implant status; Z79.890 Hormone replacement therapy; Z79.899 Other long term (current) drug therapy; Z88.5 Allergy status to narcotic agent; Z87.891 Personal history of nicotine dependence; Z90.89 Acquired absence of other organs
CPT/HCPCS: 99285 ×2; 96372 ×3; 36415; 93005; 93306; 85379; 80061; 80053; 80048 ×2; 84443; 82550; 82553; 83735; 84484; 85025; 85610; 85730; 71046; 71260; G0378 ×5; J1650 ×3; Q9967

== ENCOUNTER 2018-08-07 10:49 | Day surgery (SDC) | payer BC ==
[2018-08-05 11:09] VITALS: BMI 19.7
[~2018-08-07 10:49] MED LIST: LACTATED RINGERS 1,000 ML IV SCH
[2018-08-07 11:19] VITALS: RESP 16; TEMP 98.4
[2018-08-07] MEDS ORDERED: LIDOCAINE 1% INJ 10MG/ML (20 ML MDV) ONE (12:33)
[2018-08-07] MEDS ORDERED: MIDAZOLAM 2 MG/2 ML VIAL ONE (12:33)
[2018-08-07] MEDS ORDERED: PROPOFOL 10 MG/ML 20 ML VIAL IV ONE (12:33)
--- NOTE | 2018-08-07 13:16 | P.PCN ---
Date of Procedure: 08/07/18 Procedure(s) Performed: Procedure: 1. Esophagogastroduodenoscopy and biopsy. 2. Colonoscopy. Preoperative diagnosis: Epigastric pain and constipation. Postoperative diagnosis: 1. Mild antral gastritis. 2. Normal colon and terminal ileum. 3. Multiple biopsies obtained from the duodenum, antrum and esophagus. Preparation: HalfLytely prep. Sedation: Was provided by anesthesia. Brief clinical history: The patient is a 58-year-old female who was evaluated in the office regarding chronic constipation and epigastric pain. She reported nausea but no vomiting. No bleeding or unintentional weight loss. This evaluation is to assess for celiac disease, neoplasia or other pathology. Procedure: With the patient on her left lateral decubitus position and after informed consent and adequate sedation, I passed the Olympus-GIF 160 video upper endoscope through the cricopharyngeus down the esophagus. There was no obvious esophagitis or complicated reflux disease. The endoscope was then passed into the stomach which was insufflated with air and inspected in detail including the retroflex view in the cardia. There was some mottling and erythema in the antrum but no ulcers or erosions. Pyloric channel did not show any ulcers. Duodenal bulb, post bulbar area and descending duodenum appeared within normal limits. I obtained biopsies from the duodenum, antrum and esophagus then the endoscope was withdrawn and I proceeded with the colonoscopy. Perianal area did not show any fissures or fistulas. There were no masses felt on digital rectal examination. The Olympus CFQ 160L video colonoscope was then inserted in the rectum in the usual fashion and advanced to the cecum. I intubated the ileocecal valve and examined the terminal ileum. Terminal ileum and colon appeared healthy with no edema, erythema, friability, ulceration, exudation or spontaneous bleeding. No polyps or tumors were seen or any obvious diverticular disease or other pathology. I retroflexed the endoscope in the rectum before the endoscope was withdrawn. The patient tolerated the procedure well. Plan: The patient was reassured. Will await biopsy results. She is scheduled to follow-up in the office next month. We would keep you updated on her progress.
[2018-08-07 13:34] VITALS: BP 165/92; PULSE 71
== END 2018-08-07 13:57 | disposition home or self-care (01) ==
LOC: ORWHC2ENDO 10:49
DX: K29.50 Unspecified chronic gastritis without bleeding (principal); K21.0 Gastro-esophageal reflux disease with esophagitis; K59.00 Constipation, unspecified; I10 Essential (primary) hypertension; E78.5 Hyperlipidemia, unspecified; E07.9 Disorder of thyroid, unspecified; G35 Multiple sclerosis; Z88.5 Allergy status to narcotic agent; Z79.82 Long term (current) use of aspirin; Z79.890 Hormone replacement therapy; Z79.899 Other long term (current) drug therapy
CPT/HCPCS: 88305; 45378; 43239; J2250; J2001; J2704

== ENCOUNTER → 2018-08-08 | Outpatient (CLI) | payer BC ==
--- NOTE | 2018-08-18 10:54 | MM ---
Reason for exam: screening (asymptomatic). Last mammogram was performed 3 years ago. History: Patient is postmenopausal. Physical Findings: A clinical breast exam by your physician is recommended on an annual basis and results should be correlated with mammographic findings. MG 3D Screen Mammo Imp/Cad Bilateral CC, MLO, and ID view(s) were taken. Prior study comparison: August 03, 2015, mammogram, performed at [place]. June 16, 2013, mammogram, performed at [place]. The breast tissue is heterogeneously dense. This may lower the sensitivity of mammography. No suspicious abnormality. Bilateral retropectoral silicone implants. No significant changes when compared with prior studies. ASSESSMENT: Negative, BI-RAD 1 RECOMMENDATION: Routine screening mammogram of both breasts in 1 year.
== END | disposition home or self-care (01) ==
LOC: RADMAMWWP 13:03
PROVIDERS: ATTEND Family Medicine
DX: Z12.31 Encounter for screening mammogram for malignant neoplasm of breast (principal)
CPT/HCPCS: 77063; 77067

== ENCOUNTER → 2019-01-15 | Outpatient (CLI) | payer BC ==
[2019-01-15 19:56] LABS: Rheumatoid Factor 9 IU/mL (0-15)
[2019-01-15 20:43] LABS: DNA Double-Stranded NEGATIVE (NEGATIVE)
[2019-01-16 02:12] LABS: C Reactive Protein <0.4 mg/dL (0.0-0.8)
[2019-01-16 02:13] LABS: Creatine Kinase 81 U/L (26-186)
[2019-01-16 11:15] LABS: Lyme IgG/IgM 0.1 Index
[2019-01-16 14:58] LABS: ANA Pattern Speckled; ANA Pattern 2 See Footnote
== END | disposition home or self-care (01) ==
LOC: LABWHC1 14:51
PROVIDERS: ATTEND Psychiatry & Neurology Neurology
DX: M79.10 Myalgia, unspecified site (principal); G35 Multiple sclerosis
CPT/HCPCS: 36415; 82550; 85652; 86038; 86039; 86140; 86225; 86431; 86618

== ENCOUNTER → 2019-06-26 | Outpatient (CLI) | payer BC ==
--- NOTE | 2019-06-26 19:23 | MR ---
EXAMINATION TYPE: MR brain/cspine wo/w DATE OF EXAM: 06/26/2019 COMPARISON: Prior brain and cervical spine MRI 02/13/2018 HISTORY: MS/Increased imbalance TECHNIQUE: Multiplanar, multisequence images of the brain and brainstem, cervical spine is performed without and with IV contrast, utilizing 5 mL intravenous Gadavist . FINDINGS: Brain MRI: Diffusion weighted images demonstrate no evidence of a recent infarct or other diffusion a bnormality. There is no extra-axial fluid collection or significant interval change in white matter signal abnormality. Confluent and scattered hyperintensities are present on inversion recovery T2-we ighted sequences within the periventricular, pericallosal, sub and juxtacortical white matter as on p rior exam, there are approximately greater than 50 lesions present. The ventricular system and cister nal spaces are normal in size and appearance. The brain volume is age appropriate. Midline structures demonstrate normal morphology, there is a partially empty sella. The craniocervic al junction appears within normal limits. Post contrast images demonstrate no abnormal enhancement. The dural venous sinuses appear patent. The visualized sinuses are clear and the globes are intact. IMPRESSION: Stable abnormal brain MRI consistent with multiple sclerosis. Cervical spine MRI: Degenerative disc changes are essentially stable, there is multilevel spondylosis with loss of disc height signal greatest at C4-5, C5-6, posterior extension of endplate disc complex , endplate discogenic marrow signal change. Bilateral foraminal encroachment present C4-5, there is m ild to moderate central stenosis. C5-6 shows right-sided foraminal encroachment and mild to moderate central stenosis. Posterior extension of endplate disc complex at C6-7 causes mild anterior mass effe ct on the thecal sac, only mild central stenosis. There is right-sided foraminal encroachment. C7-T1 shows a small posterior disc herniation. Mild left-sided foraminal encroachment present C3-4 due to u ncovertebral joint hypertrophy. Cervical cord signal is normal with exception of stable focus at the C4 level within the right side o f the cord which show some increased signal on T2-weighted sequences. There is no abnormal enhancemen t following contrast administration. IMPRESSION: Stable degenerative disc disease. Suspect abnormal focus within the cervical cord as desc ribed is stable.
== END | disposition home or self-care (01) ==
LOC: RADMRIMAIN 10:44
PROVIDERS: ATTEND Psychiatry & Neurology Neurology
DX: M50.321 Other cervical disc degeneration at C4-C5 level (principal); R94.02 Abnormal brain scan; G35 Multiple sclerosis
CPT/HCPCS: 70553; 72156; A9585

== ENCOUNTER → 2019-06-27 | Outpatient (CLI) | payer BC ==
--- NOTE | 2019-06-27 17:05 | MR ---
EXAMINATION TYPE: MR thoracic spine wo/w con DATE OF EXAM: 06/27/2019 COMPARISON: None HISTORY: MS Weakness CONTRAST: Standard multiplanar, multisequence MRI departmental protocol utilizing 5 mL intravenous Gadavist eve olinium contrast. FINDINGS: Thoracic vertebra have normal spacing and alignment. There is no compression fracture. Ther e is no thoracic paraspinal mass. I see no bony destructive process. There is degenerative disc space narrowing at C4-5 C5-6 C6-7 with spurring and small posterior disc herniations. Posterior elements a re intact. Thoracic spinal cord has normal signal pattern without evidence of edema. There is no thoracic spinal stenosis. Contrast images show no pathologic enhancement. IMPRESSION: Negative MR scan of the thoracic spine. No evidence of demyelinating disease in the thoracic spinal c ord.
== END | disposition home or self-care (01) ==
LOC: RADMRIMAIN 11:40
PROVIDERS: ATTEND Psychiatry & Neurology Neurology
DX: G35 Multiple sclerosis (principal); R26.89 Other abnormalities of gait and mobility
CPT/HCPCS: 72157

== ENCOUNTER → 2020-05-09 | Outpatient (CLI) | payer BC ==
--- NOTE | 2020-05-10 08:30 | MM ---
Reason for exam: screening (asymptomatic). Last mammogram was performed 1 year and 9 months ago. History: Patient is postmenopausal. Retro-pectoral saline implants in both breasts, 2016. Took progesterone for 2 years. Physical Findings: A clinical breast exam by your physician is recommended on an annual basis and results should be correlated with mammographic findings. MG 3D Screen Mammo Imp/Cad Bilateral CC and MLO view(s) were taken. Prior study comparison: August 08, 2018, bilateral MG 3d screen mammo imp/cad. August 03, 2015, mammogram, performed at [place]. The breast tissue is heterogeneously dense. This may lower the sensitivity of mammography. There is no discrete abnormality. Bilateral implants are intact. No significant changes when compared with prior studies. ASSESSMENT: Benign, BI-RAD 2 RECOMMENDATION: Routine screening mammogram of both breasts in 1 year.
== END | disposition home or self-care (01) ==
LOC: RADMAMWWP 10:48
PROVIDERS: ATTEND Family Medicine
DX: Z12.31 Encounter for screening mammogram for malignant neoplasm of breast (principal)
CPT/HCPCS: 77063; 77067

== ENCOUNTER → 2020-05-19 | Outpatient (CLI) | payer BC ==
--- NOTE | 2020-05-19 11:33 | MR ---
EXAMINATION TYPE: MR brain/cspine wo/w DATE OF EXAM: 05/19/2020 COMPARISON: Previous exam 06/26/2019 HISTORY: Dizziness, Loss of Balance, Weakness Left Side TECHNIQUE: Multiplanar, multisequence images of the brain and brainstem, cervical spine is performed without and with IV contrast, utilizing 5 mL intravenous Gadavist . FINDINGS: Brain: Diffusion weighted images demonstrate no evidence of a recent infarct or other diffusion abnor mality. There is no extra-axial fluid collection or significant interval change in the extensive whi te matter signal abnormality seen as hyperintensity on T1 and T2-weighted sequences, some scattered l esions may show slight differences in conspicuity. Lesions are present in the subcortical, juxtacorti gabino, pericallosal, periventricular deep white matter. There are greater than 50 lesions. Large conflu ent foci are present as well as scattered hyperintensities. The ventricular system and cisternal spac es are normal in size and appearance. The brain volume is age appropriate. Midline structures demonstrate normal morphology. The craniocervical junction appears within normal limits. Post contrast images demonstrate no abnormal enhancement. The dural venous sinuses appear pa tent. The visualized sinuses are clear and the globes are intact. IMPRESSION: Stable abnormal findings. Cervical spine MRI: The multilevel degenerative disc disease most severe at C4-5, C5-6 and C6-7 is no t significantly changed. There is multilevel foraminal encroachment as noted on prior exam. Spinal st enosis is greatest at C4-5, C5-6. Loss of disc height and signal is also greatest at C4-5 and C5-6 wi th endplate discogenic marrow signal changes, spondylosis. Cervical vertebral bodies show stable heig ht and alignment. Cervical cord signal is stable, focus of increased signal present in the right of m idline at the C4-5 level as on prior. No abnormal enhancement following contrast administration. IMPRESSION: Stable findings.
== END | disposition home or self-care (01) ==
LOC: RADMRIMAIN 08:28
PROVIDERS: ATTEND Psychiatry & Neurology Neurology
DX: M48.02 Spinal stenosis, cervical region (principal); M50.321 Other cervical disc degeneration at C4-C5 level; M47.812 Spondylosis without myelopathy or radiculopathy, cervical region; G93.89 Other specified disorders of brain
CPT/HCPCS: 70553; 72156; A9585

== ENCOUNTER → 2020-05-20 | Outpatient (CLI) | payer BC ==
--- NOTE | 2020-05-20 10:52 | MR ---
MR thoracic spine with and without contrast HISTORY: Multiple sclerosis, G 35 Multiplanar multisequence imaging and postcontrast images obtained through the thoracic spine followi ng 5 cc Gadavist IV. correlation to prior MR thoracic spine 06/27/2019 Cervical spine degenerative disc changes are noted. Thoracic vertebral bodies show preserved height, alignment, stable signal. Disc spaces are also unchanged. There is no evident spinal stenosis or fora donna encroachment. There is a spinal curvature. Thoracic cord signal is maintained. No evident disc herniation. Some facet arthropathy changes are present at the lower thoracic spine. No abnormal enhan cement following contrast administration. IMPRESSION: Stable thoracic MRI. No significant abnormalities evident. Degenerative disc changes are present in the cervical spine, small posterior disc herniation noted incidentally at C7-T1.
== END | disposition home or self-care (01) ==
LOC: RADMRIMAIN 08:58
PROVIDERS: ATTEND Psychiatry & Neurology Neurology
DX: M47.894 Other spondylosis, thoracic region (principal); R26.89 Other abnormalities of gait and mobility
CPT/HCPCS: 72157; A9585

== ENCOUNTER → 2020-08-01 | Outpatient (CLI) | payer BC ==
--- NOTE | 2020-08-01 15:32 | XR ---
Lumbar spine HISTORY: Back pain 3 views of the lumbar spine Lumbar vertebral bodies show preserved height, alignment, and bone mineralization. There is mild mult ilevel spondylosis. Sclerosis in the posterior elements is consistent with facet arthropathy. Mild lo ss of disc height at intervertebral levels. IMPRESSION: Degenerative disc disease
== END | disposition home or self-care (01) ==
LOC: RADXRMAIN 13:18
PROVIDERS: ATTEND Family Medicine
DX: M51.37 Other intervertebral disc degeneration, lumbosacral region (principal)
CPT/HCPCS: 72100